=== PATIENT | female | born 1970 | race Caucasian/White ===

== ENCOUNTER → 2024-06-06 | Outpatient (CLI) | payer BC ==
--- NOTE | 2024-06-06 09:36 | MR ---
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 COMPARISON: None. TECHNIQUE: Multi planar, multi sequence imaging was performed through the brain. The patient was then given 6 cc of Gadobutrol intravenously and multi planar, T1 fat-saturation images were obtained. FINDINGS: The linton-white junctions, ventricular system, basal cisterns appear unremarkable. Age-appropriate cer ebral volume. Diffusion-weighted imaging shows no evidence of restricted diffusion to suggest acute/s ubacute infarct. Intracranial arterial flow voids are maintained. Midline structures show no abnormal ity. No discrete flair signal abnormalities.. The susceptibility weighted images do not reveal any ev idence for micro-hemorrhage. After administration of gadolinium, no abnormal enhancement is seen. The bone marrow signal is within normal limits. The paranasal sinuses and globes are unremarkable. R ight mastoid effusion. IMPRESSION: 1. No evidence of intracranial mass, acute/subacute infarct, or abnormal enhancement. 2. Right mastoid effusion. Correlate clinically for mastoiditis. [facility], , 06/06/2024 9:33 AM
== END | disposition home or self-care (01) ==
LOC: RADMRIMAIN 05:58
PROVIDERS: ATTEND Internal Medicine
DX: C50.412 Malignant neoplasm of upper-outer quadrant of left female breast (principal); E78.5 Hyperlipidemia, unspecified; H74.8X1 Other specified disorders of right middle ear and mastoid; M12.9 Arthropathy, unspecified
CPT/HCPCS: 70553; A9585